=== PATIENT | female | born 2000 | race Caucasian/White ===

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

== ENCOUNTER 2019-05-25 23:53 | Emergency (ER) | payer MEDICAID ==
[~2019-05-25] VITALS: Ht 157.5 cm; Wt 114.7 kg
[2019-05-26 02:38] LABS: CHLORIDE 109 mEq/L (98-107)
[2019-05-26 03:13] LABS: HEMATOCRIT 44.6 % (36.0-48.0); HEMOGLOBIN 14.9 g/dL (12.0-16.0); MEAN CORPUSCULAR HEMOGLOBIN 27.9 pg (28.0-32.0); MEAN CORPUSCULAR VOLUME 83.8 fL (81.0-99.0); PLATELET 234 x1000/uL (130-400); RED BLOOD CELL COUNT 5.32 mill/uL (4.2-5.4); RED CELL DISTRIBUTION WIDTH 15.6 % (11.6-14.6)
[2019-05-26 03:24] LABS: CLARITY URINE CLEAR (CLEAR); COLOR URINE YELLOW (YELLOW); KETONES URINE NEGATIVE (NEGATIVE); LEUKOCYTE ESTERASE URINE NEGATIVE (NEGATIVE); NITRITE URINE NEGATIVE (NEGATIVE); OCCULT BLOOD URINE NEGATIVE (NEGATIVE); PROTEIN URINE NEGATIVE (NEGATIVE); SPECIFIC GRAVITY URINE 1.031 (1.005-1.030)
[2019-05-26] MEDS ORDERED: KETOROLAC 60MG/2ML VIAL IM NR (04:15)
[2019-05-26 05:48] VITALS: BP 116/63
[2019-05-29 04:11] LABS: CHLAMYDIA TRACHOMATIS NAA Negative (Negative); NEISSERIA GONORRHOEAE NAA Negative (Negative)
== END 2019-05-26 05:49 | disposition home or self-care (01) ==
LOC: ER 05-26 00:06
DX: R10.9 Unspecified abdominal pain (principal)
CPT/HCPCS: 36415; 74176; 80053; 81003; 81025; 85027; 87491; 87591; 96372; 99284; J1885

== ENCOUNTER 2019-07-18 12:17 | Emergency (ER) | payer SELFPAY ==
[~2019-07-18] VITALS: Ht 165.1 cm; Wt 100.0 kg
[2019-07-18] MEDS ORDERED: HYDROCODONE/ACETAMINOPHEN 5/325MG TABLET PO ONE ×2 (13:15→13:30)
[2019-07-18] MEDS ORDERED: ACETAMINOPHEN 500MG TABLET PO ONE ×2 (13:15→13:30)
[2019-07-18] MEDS ORDERED: KETOROLAC 60MG/2ML VIAL IM ONE (14:30)
[2019-07-18 14:36] VITALS: BP 123/83
== END 2019-07-18 14:37 | disposition home or self-care (01) ==
LOC: ER 12:17
DX: M54.5 Low back pain (principal); R03.0 Elevated blood-pressure reading, without diagnosis of hypertension
CPT/HCPCS: 96372; 99283; J1885